=== PATIENT | male | born 1990 | race African-American/Black ===

== ENCOUNTER 2018-08-25 14:29 | Emergency (ER) | payer SELFPAY ==
[2018-08-25] MEDS ORDERED: NA CHLORIDE 0.9% 1,000 ML ONE ×3 (15:04→16:56)
[2018-08-25] MEDS ORDERED: MORPHINE 4 MG/ML SYR ONE ×2 (15:04→15:44)
[2018-08-25] MEDS ORDERED: ONDANSETRON 4 MG/2 ML VIAL ONE (15:04)
[2018-08-25 15:12] LABS: Absolute Lymphocytes (CBC) 1.2 K/uL (0.7-4.9); Absolute Monocytes 0.6 K/uL (0.1-1.3); Absolute Neutrophil 13.2 K/uL (1.8-8.0); Basophils % 0.4 % (0-1.3); Eosinophils % 0.1 % (0-4.4); Hematocrit 45.5 % (39.6-49.0); Lymphocytes % 7.9 % (15.3-44.8); MCH 30.7 pg (27.0-35.0); MCV 89.5 fL (80-100); MPV 9.1 fL (7.6-11.3); Monocytes % 4.2 % (3.3-12.3); RBC Red Blood Cell Count 5.08 M/uL (4.33-5.43)
[2018-08-25 15:34] LABS: ALT/SGPT 22 U/L (12-78); AST/SGOT 15 U/L (15-37); Albumin 4.4 g/dL (3.4-5.0); Alkaline Phosphatase 69 U/L (45-117); BUN Blood Urea Nitrogen 14 mg/dL (7-18); Bicarbonate 27 mmol/L (21-32); Bilirubin Direct 0.2 mg/dL (0-0.2); Bilirubin Total 0.7 mg/dL (0.2-1.0); Glucose Level 112 mg/dL (74-106); Lipase 96 U/L (73-393); Potassium 3.4 mmol/L (3.5-5.1); Sodium Level 137 mmol/L (136-145)
--- NOTE | 2018-08-25 16:02 | RAD REPORT ---
EXAM DESCRIPTION: CT - Stone Protocol - 08/25/2018 3:34 pm CLINICAL HISTORY: Abdominal pain. Right flank pain/hematuria COMPARISON: None. TECHNIQUE: Computed axial tomography of the abdomen pelvis was obtained without oral or IV contrast. Lack of IV and oral contrast limits evaluation of solid organs, bowel, and vessels. Coronal reformat jer images were obtained and reviewed. All CT scans are performed using dose optimization technique as appropriate and may include automated exposure control or mA/KV adjustment according to patient size. FINDINGS: A renal calculus is not seen. An ureteral calculus is not noted. A bladder calculus is not present. A 29 millimeter low-density mass is present within the left kidney. This is nonspecific wit hout IV contrast but probably represents a cyst. This should be confirmed with nonemergent renal ultr asound The liver, spleen, pancreas and adrenals appear grossly normal There is no evidence of diverticulitis. The appendix appears normal Tiny umbilical hernia is present IMPRESSION: Negative for a genitourinary calculus
[2018-08-25 16:20] LABS: Blood Morphology Comment NOT SEEN (NOT SEEN); Platelet Estimate ADEQ; Urine White Blood Cell Casts OK
--- NOTE | 2018-08-25 17:36 | ER ---
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 Transition of care: patient was not received from another setting of care. Onset of symptoms was August 25, 2018. Risk Assessment: Do you want to hurt yourself or someone else? Patient reports no desire to harm self or others. Initial Sepsis Screen: Does the patient meet any 2 criteria? No. Patient's initial sepsis screen is negative. Does the patient have a suspected source of infection? No. Patient's initial sepsis screen is negative. Care prior to arrival: None. 14:39 Method Of Arrival: Ambulatory aj 14:39 Acuity: NETTE 3 aj Triage Assessment: 14:39 General: Appears in no apparent distress. uncomfortable, Behavior is calm, cooperative, aj appropriate for age. Pain: Complains of pain in anterior aspect of right lateral abdomen and posterior aspect of right lateral abdomen. Neuro: Level of Consciousness is awake, alert, obeys commands, Oriented to person, place, time, situation, Appropriate for age. Respiratory: Airway is patent Respiratory effort is even, unlabored, Respiratory pattern is regular, symmetrical. GI: Reports nausea, vomiting. : Reports pain in right flank(s), blood in urine. Derm: Skin is intact, is healthy with good turgor, Skin is pink, warm \T\ dry. normal. Historical: - Allergies: 14:39 No Known Allergies; aj - Home Meds: 14:39 None [Active]; aj - PMHx: 14:39 None; aj - PSHx: 14:39 None; aj - Immunization history:: Adult Immunizations up to date. - Social history:: Smoking status: Patient uses tobacco products, smokes one-half pack cigarettes per day. - Ebola Screening: : Patient negative for fever greater than or equal to 101.5 degrees Fahrenheit, and additional compatible Ebola Virus Disease symptoms Patient denies exposure to infectious person Patient denies travel to an Ebola-affected area in the 21 days before illness onset No symptoms or risks identified at this time. Screenin:27 Abuse screen: Denies threats or abuse. Nutritional screening: No deficits noted. em Tuberculosis screening: No symptoms or risk factors identified. Fall Risk None identified. Assessment: 14:50 General: Appears uncomfortable, Behavior is cooperative, Denies fever. Pain: Complains em of pain in umbilical area, right lower quadrant and left lower quadrant Pain currently is 10 out of 10 on a pain scale. Neuro: Level of Consciousness is awake, alert, obeys commands, Oriented to person, place, time, situation. Cardiovascular: Capillary refill < 3 seconds Patient's skin is warm and dry. Respiratory: Airway is patent Respiratory effort is even, unlabored, Respiratory pattern is regular, symmetrical. GI: Abdomen is flat, Bowel sounds present X 4 quads. Abd is soft X 4 quads Abdomen is tender to palpation in umbilical area, right lower quadrant and left lower quadrant Reports nausea, vomiting, Patient currently denies. : Urine is frances blood, Denies burning with urination, pain. EENT: No signs and/or symptoms were reported regarding the EENT system. Derm: Skin is intact, Skin is pink, warm \T\ dry. Musculoskeletal: Range of motion: intact in all extremities. 14:55 General: The previous assessment is accurate, call light remains within reach. . ss 15:30 Reassessment: Patient appears in no apparent distress at this time. Patient and/or em family updated on plan of care and expected duration. Pain level reassessed. Patient is alert, oriented x 3, equal unlabored respirations, skin warm/dry/pink. pt rates pain 8/10, provider notified, new medication orders received. 16:02 Reassessment: Patient appears in no apparent distress at this time. Patient and/or em family updated on plan of care and expected duration. Pain level reassessed. Patient is alert, oriented x 3, equal unlabored respirations, skin warm/dry/pink. rates pain 4/10 Patient states feeling better. Patient states symptoms have improved. 16:52 Reassessment: Patient appears in no apparent distress at this time. Patient and/or em family updated on plan of care and expected duration. Pain level reassessed. Patient is alert, oriented x 3, equal unlabored respirations, skin warm/dry/pink. rates pain 4/10 Patient states feeling better. Patient states symptoms have improved. 17:31 Reassessment: Patient appears in no apparent distress at this time. Patient and/or em family updated on plan of care and expected duration. Pain level reassessed. Patient is alert, oriented x 3, equal unlabored respirations, skin warm/dry/pink. pt urine clear, 150 mL output, currently rates pain 4/10. 17:55 Reassessment: Patient appears in no apparent distress at this time. pt discharged, em pending UA and micro results. Vital Signs: 14:39 BP 142 / 84; Pulse 69; Resp 18; Temp 97.5; Pulse Ox 99% on R/A; Weight 77.11 kg; Height aj 5 ft. 11 in. (180.34 cm); 15:30 BP 140 / 90; Pulse 67; Resp 20; Pulse Ox 100% on R/A; Pain 8/10; em 16:02 BP 143 / 91; Pulse 75; Resp 16; Pulse Ox 99% on R/A; Pain 4/10; em 16:55 BP 110 / 90; Pulse 65; Resp 16; Pulse Ox 100% on R/A; Pain 4/10; em 17:31 BP 118 / 69; Pulse 64; Resp 16; Pulse Ox 99% on R/A; Pain 4/10; em 18:25 BP 129 / 84; Pulse 80; Resp 16; Pulse Ox 99% on R/A; Pain 5/10; em 14:39 Body Mass Index 23.71 (77.11 kg, 180.34 cm) ED Course: 14:31 Patient arrived in ED. mr 14:32 None, None is Private Physician. mr 14:39 Triage completed. aj 14:39 Arm band placed on left wrist. Patient placed in an exam room. aj 14:42 Huey Osorio LVN is Primary Nurse. em 14:49 Santhosh Spencer PA is PHCP. jmm 14:49 Leo Koroma MD is Attending Physician. [facility] 15:00 Patient has correct armband on for positive identification. Placed in gown. Bed in low em position. Call light in reach. Side rails up X2. 15:00 Initial lab(s) drawn, by me, sent to lab. Urine collected: clean catch specimen, frances em blood. Inserted saline lock: 20 gauge in right antecubital area, using aseptic technique. Blood collected. 15:34 CT Stone Protocol In Process Unspecified. EDMS 17:35 Sandi Quiroz MD is Referral Physician. jmm 18:21 No provider procedures requiring assistance completed. IV discontinued, intact, em bleeding controlled, No redness/swelling at site. Pressure dressing applied. Administered Medications: 14:55 Drug: morphine 4 mg Route: IVP; Site: right antecubital; ss 15:27 Follow up: Response: No adverse reaction; Pain is decreased em 14:55 Drug: Zofran 4 mg Route: IVP; Site: right antecubital; ss 15:27 Follow up: Response: No adverse reaction em 15:07 Drug: NS 0.9% 1000 ml Route: IV; Rate: 1 bolus; Site: right antecubital; em 16:13 Follow up: IV Status: Completed infusion; IV Intake: 1000ml em 15:42 Drug: morphine 4 mg Route: IVP; Site: right antecubital; em 16:13 Follow up: Response: No adverse reaction; Pain is decreased em 16:14 Drug: NS 0.9% 1000 ml Route: IV; Rate: 1 bolus; Site: right antecubital; em 18:24 Follow up: IV Status: Completed infusion; IV Intake: 1000ml em 16:53 Drug: NS 0.9% 1000 ml Route: IV; Rate: 1 bolus; Site: right antecubital; em 18:24 Follow up: IV Status: Completed infusion; IV Intake: 1000ml em Intake: 16:13 IV: 1000ml; Total: 1000ml. em 18:24 IV: 1000ml; Total: 2000ml. em 18:24 IV: 1000ml; Total: 3000ml. em Output: 15:00 Urine: 300ml (Voided); Total: 300ml. em 17:34 Urine: 150ml (Voided); Total: 450ml. em Outcome: 17:35 Discharge ordered by . jmm 18:21 Discharged to home ambulatory. em 18:21 Condition: good 18:21 Discharge instructions given to patient, Instructed on discharge instructions, follow up and referral plans. medication usage, Demonstrated understanding of instructions, follow-up care, medications, Prescriptions given X 2. 18:25 Patient left the ED. em Addendum: 08/31/2018 14:47 Addendum: Culture Results: Positive urine culture. Phone call Attempt #1 at [phone]. a a5 Unable to leave a voicemail, voicemail not set up. Addendum: Culture Results: Phone call Attempt #2 at [phone]. 18:33 Addendum: Culture Results: Prescription called-in to pharmacy of choice. to [facility] in [place], [place] per pt's request. Signatures: Dispatcher [employer] Lizette Phillips, RN RN Santhosh Curiel PA PA jmm Rivera, Mary mr Huey Osorio, MILLWORK ESTIMATOR MILLWORK ESTIMATOR Elba Rodriguez, RN RN aa5 Liv Salas RN RN ss
--- NOTE | 2018-08-25 17:36 | EDPHYS ---
Physician Documentation [facility] Name: Clarence Wood Age: 28 yrs Sex: Male : 1990 Arrival Date: 08/25/2018 Time: 14:31 Bed 14 Private MD: None, None ED Physician Leo Koroma HPI: 08/25 15:01 This 28 yrs old Black Male presents to ER via Ambulatory with complaints of Abdominal jmm Pain, Urinary Problem. 15:01 The patient presents with abdominal pain in the periumbilical area. Onset: The jmm symptoms/episode began/occurred acutely, at 10:00. The symptoms do not radiate. The symptoms are described as achy, sharp. Modifying factors: The symptoms are alleviated by nothing, the symptoms are aggravated by alcohol. This is a 28 year old male with no chronic medical conditions that presents to the ED with periumbilical abdominal pain, vomiting, hematuria beginning at approx 10 am today. patient denies Hx of intraabdominal surgeries. . Historical: - Allergies: 14:39 No Known Allergies; aj - Home Meds: 14:39 None [Active]; aj - PMHx: 14:39 None; aj - PSHx: 14:39 None; aj - Immunization history:: Adult Immunizations up to date. - Social history:: Smoking status: Patient uses tobacco products, smokes one-half pack cigarettes per day. - Ebola Screening: : Patient negative for fever greater than or equal to 101.5 degrees Fahrenheit, and additional compatible Ebola Virus Disease symptoms Patient denies exposure to infectious person Patient denies travel to an Ebola-affected area in the 21 days before illness onset No symptoms or risks identified at this time. ROS: 15:01 Constitutional: Negative for fever, chills, and weight loss, Cardiovascular: Negative jmm for chest pain, palpitations, and edema, Respiratory: Negative for shortness of breath, cough, wheezing, and pleuritic chest pain. 15:01 Abdomen/GI: Positive for abdominal pain, nausea and vomiting. 15:01 : Positive for hematuria. 15:01 All other systems are negative. Exam: 15:01 Head/Face: atraumatic. jmm 15:01 Chest/axilla: Normal chest wall appearance and motion. Cardiovascular: Regular rate and rhythm. No edema appreciated Respiratory: Normal respirations, no respiratory distress appreciated 15:01 Constitutional: The patient appears in no acute distress, alert, awake. 15:01 Constitutional: The patient appears uncomfortable. 15:01 Abdomen/GI: Inspection: abdomen appears normal, Bowel sounds: Palpation: soft, moderate abdominal tenderness, in the umbilical area and right lower quadrant. 15:01 Back: ROM is normal. 15:01 Musculoskeletal/extremity: ROM: intact in all extremities, full active range of motion. 15:01 Skin: Appearance: Color: normal in color. 15:01 Neuro: Orientation: is normal, Mentation: is normal, Memory: is normal. 15:01 Psych: Behavior/mood is pleasant, cooperative. Vital Signs: 14:39 BP 142 / 84; Pulse 69; Resp 18; Temp 97.5; Pulse Ox 99% on R/A; Weight 77.11 kg; Height aj 5 ft. 11 in. (180.34 cm); 15:30 BP 140 / 90; Pulse 67; Resp 20; Pulse Ox 100% on R/A; Pain 8/10; em 16:02 BP 143 / 91; Pulse 75; Resp 16; Pulse Ox 99% on R/A; Pain 4/10; em 16:55 BP 110 / 90; Pulse 65; Resp 16; Pulse Ox 100% on R/A; Pain 4/10; em 17:31 BP 118 / 69; Pulse 64; Resp 16; Pulse Ox 99% on R/A; Pain 4/10; em 18:25 BP 129 / 84; Pulse 80; Resp 16; Pulse Ox 99% on R/A; Pain 5/10; em 14:39 Body Mass Index 23.71 (77.11 kg, 180.34 cm) MDM: 14:54 Patient medically screened. [facility] 15:51 Data reviewed: vital signs, nurses notes. Counseling: I had a detailed discussion with [facility] the patient and/or guardian regarding: the historical points, exam findings, and any diagnostic results supporting the discharge/admit diagnosis, the need for outpatient follow up, to return to the emergency department if symptoms worsen or persist or if there are any questions or concerns that arise at home. 17:32 Data reviewed: lab test result(s), radiologic studies, CT scan. Data interpreted: Pulse [facility] oximetry: on room air is 100 %. Interpretation: normal. ED course: Patient is alert and non toxic in appearance and states pain is much better on discharge. Due to hematuria, abdominal pain, and cystic mass, the patient is given follow up with urology with strict return precautions. Patient understood and agrees with the plan of care. . 08/25 14:53 Order name: Basic Metabolic Panel; Complete Time: 15:34 [facility] 08/25 14:53 Order name: CBC with Diff; Complete Time: 16:28 [facility] 08/25 14:53 Order name: Creatinine for Radiology; Complete Time: 15:34 [facility] 08/25 14:53 Order name: Hepatic Function; Complete Time: 15:34 [facility] 08/25 14:53 Order name: Lipase; Complete Time: 15:34 [facility] 08/25 15:20 Order name: CBC Smear Scan; Complete Time: 16:28 [facility] 08/25 15:05 Order name: CT Stone Protocol; Complete Time: 16:04 [facility] 08/25 17:41 Order name: Urine Microscopic Only; Complete Time: 18:11 [facility] 08/25 17:41 Order name: Urine Culture [facility] 08/25 17:41 Order name: UA; Complete Time: 18:11 08/25 14:53 Order name: IV Saline Lock; Complete Time: 15:08 [facility] 08/25 14:53 Order name: Labs collected and sent; Complete Time: 15:08 [facility] 08/25 14:53 Order name: Urine Dipstick-Ancillary (obtain specimen); Complete Time: 15:07 [facility] Administered Medications: 14:55 Drug: morphine 4 mg Route: IVP; Site: right antecubital; ss 15:27 Follow up: Response: No adverse reaction; Pain is decreased em 14:55 Drug: Zofran 4 mg Route: IVP; Site: right antecubital; ss 15:27 Follow up: Response: No adverse reaction em 15:07 Drug: NS 0.9% 1000 ml Route: IV; Rate: 1 bolus; Site: right antecubital; em 16:13 Follow up: IV Status: Completed infusion; IV Intake: 1000ml em 15:42 Drug: morphine 4 mg Route: IVP; Site: right antecubital; em 16:13 Follow up: Response: No adverse reaction; Pain is decreased em 16:14 Drug: NS 0.9% 1000 ml Route: IV; Rate: 1 bolus; Site: right antecubital; em 18:24 Follow up: IV Status: Completed infusion; IV Intake: 1000ml em 16:53 Drug: NS 0.9% 1000 ml Route: IV; Rate: 1 bolus; Site: right antecubital; em 18:24 Follow up: IV Status: Completed infusion; IV Intake: 1000ml em Disposition: 18:32 Co-signature as Attending Physician, Leo Koroma MD. rn Disposition: 08/25/18 17:35 Discharged to Home. Impression: Hematuria, unspecified, Unspecified abdominal pain. - Condition is Stable. - Discharge Instructions: Abdominal Pain, Adult, Hematuria, Adult. - Prescriptions for Ultracet 37.5- 325 mg Oral Tablet - take 1 tablet by ORAL route every 6 hours - for up to 5 days; do not exceed 8 tablets per day.; 15 tablet. Cephalexin 500 mg Oral Capsule - take 1 capsule by ORAL route every 12 hours for 10 days; 20 capsule. - Medication Reconciliation Form, Thank You Letter, Antibiotic Education, Prescription Opioid Use form. - Follow up: Sandi Quiroz MD; When: 2 - 3 days; Reason: Recheck today's complaints, Continuance of care, Re-evaluation by your physician. Signatures: Dispatcher [employer] Lizette Phillips RN RN Santhosh Curiel PA PA [facility] Huey Osorio, SYSTEM SUPPORT ANALYST SYSTEM SUPPORT ANALYST Leo Solano MD MD rn Smirch, Shelby, RN RN Corrections: (The following items were deleted from the chart) 18:25 17:35 08/25/2018 17:35 Discharged to Home. Impression: Hematuria, unspecified; em Unspecified abdominal pain. Condition is Stable. Forms are Medication Reconciliation Form, Thank You Letter, Antibiotic Education, Prescription Opioid Use. Follow up: Sandi Quiroz; When: 2 - 3 days; Reason: Recheck today's complaints, Continuance of care, Re-evaluation by your physician. jason
[2018-08-25 17:57] LABS: Urine Bilirubin NEGATIVE (NEG); Urine Blood 3+ (NEG); Urine Color RED; Urine Glucose NEGATIVE (NEG); Urine Protein 3+ (NEG); Urine pH 7.5 (5.0-7.0)
[2018-08-25 17:58] LABS: Urine Microscopic Reflex ORDER UMIC
[2018-08-25 18:08] LABS: Urine Bacteria <20 /HPF (NONE SEEN); Urine Culture Reflex Order NOT NEEDED; Urine RBC TNTC /HPF (NONE SEEN)
[2018-08-25 18:09] LABS: Urine Appearance TURBID
== END 2018-08-25 18:25 | disposition home or self-care (01) ==
LOC: ER 14:29
DX: R31.9 Hematuria, unspecified (principal); F17.210 Nicotine dependence, cigarettes, uncomplicated
CPT/HCPCS: 36415; 74176; 76377; 80048; 80076; 81003; 81015; 83690; 85025; 87077; 87086; 87088; 87186; 96361; 96374; 96375; 99284; J2405; J7030